=== PATIENT | male | born 1985 | race Caucasian/White ===

== ENCOUNTER 2021-07-01 15:32 | Emergency (ER) | payer SELFPAY ==
--- NOTE | 2021-07-01 16:23 | EDM.PDOCBH ---
ED HPI GENERAL MEDICAL PROBLEM - General Chief Complaint: Drug or Alcohol Abuse Stated Complaint: EVAL Time Seen by Provider: 07/01/21 16:18 Source of Information: Reports: Patient, RN Notes Reviewed History Limitations: Reports: No Limitations - History of Present Illness INITIAL COMMENTS - FREE TEXT/NARRATIVE: 35-year-old gentleman presents emergency department today for medical screening, he is using methamphetamine and would like to go to detox, he was sent here per request of social worker delinquency prevention for medical evaluation and then hopefully with clearance he will be able to go to detox today. He has no complaints he last used methamphetamine this morning - Related Data Allergies Allergy/AdvReac Type Severity Reaction Status Date / Time naproxen AdvReac Stomach Verified 07/01/21 16:04 Ache Home Meds: Home Meds ARIPiprazole [Abilify] 10 mg PO DAILY 07/01/21 [History] hydrOXYzine HCL [hydrOXYzine] 25 mg PO TID 07/01/21 [History] lisinopriL [Lisinopril] 10 mg PO DAILY 07/01/21 [History] Past Medical History Cardiovascular History: Reports: Hypertension Musculoskeletal History: Reports: Fracture Neurological History: Reports: Other (See Below) Other Neuro History: TBI x2 Psychiatric History: Reports: Addiction, Anxiety, PTSD, Suicide Attempt, Other (See Below) Other Psychiatric History: night terrors. - Past Surgical History Musculoskeletal Surgical History: Reports: Other (See Below) Other Musculoskeletal Surgeries/Procedures:: bilateral foot surger, right hand fx fixed x3. Social & Family History - Tobacco Use Tobacco Use Status *Q: Light Tobacco User Years of Tobacco use: 20 Packs/Tins Daily: 0.2 - Caffeine Use Caffeine Use: Reports: Coffee, Energy Drinks, Soda, Tea - Recreational Drug Use Recreational Drug Use: Yes Recreational Drug Type: Reports: Marijuana/Hashish, Methamphetamine, Other (see below) Other Recreational Drug Type: delta 8 Recreational Drug Use Frequency: Daily ED ROS GENERAL - Review of Systems Review Of Systems: See Below Constitutional: Reports: No Symptoms HEENT: Reports: No Symptoms Respiratory: Reports: No Symptoms Cardiovascular: Reports: No Symptoms GI/Abdominal: Reports: No Symptoms Neurological: Reports: No Symptoms Psychiatric: Reports: No Symptoms ED EXAM, BEHAVIORAL HEALTH - Physical Exam Exam: See Below Exam Limited By: No Limitations General Appearance: Alert, WD/WN, No Apparent Distress Respiratory/Chest: No Respiratory Distress, Lungs Clear, Normal Breath Sounds, No Accessory Muscle Use, Chest Non-Tender Cardiovascular: Regular Rate, Rhythm, No Murmur GI/Abdominal: Soft, Non-Tender COURSE, BEHAVIORAL HEALTH COMP - Course Vital Signs: Last Vital Signs Temp 98.2 F 07/01/21 16:03 Pulse 112 H 07/01/21 16:03 Resp 16 07/01/21 16:03 BP 166/107 H 07/01/21 16:03 Pulse Ox 94 L 07/01/21 16:03 Orders, Labs, Meds: Laboratory Tests 07/01/21 07/01/21 07/01/21 Range/Units 16:30 16:30 16:32 WBC 10.6 (4.5-11.0) K/uL RBC 5.42 (4.30-5.90) M/uL Hgb 15.7 H (12.0-15.0) g/dL Hct 46.1 (40.0-54.0) % MCV 85 (80-98) fL MCH 29 (27-31) pg MCHC 34 (32-36) % Plt Count 426 H (150-400) K/uL Neut % (Auto) 62.1 (36-66) % Lymph % (Auto) 28.5 (24-44) % [place] % (Auto) 8.5 H (2-6) % Eos % (Auto) 0.5 L (2-4) % Baso % (Auto) 0.4 (0-1) % Sodium (140-148) mmol/L Potassium (3.6-5.2) mmol/L Chloride (100-108) mmol/L Carbon Dioxide (21-32) mmol/L Anion Gap (5.0-14.0) mmol/L BUN (7-18) mg/dL Creatinine (0.8-1.3) mg/dL Est Cr Clr Drug Dosing mL/min Estimated GFR (MDRD) (>60) Glucose (74-106) mg/dL Calcium (8.5-10.1) mg/dL Total Bilirubin (0.2-1.0) mg/dL AST (15-37) U/L ALT (12-78) U/L Alkaline Phosphatase (46-116) U/L Total Protein (6.4-8.2) g/dL Albumin (3.4-5.0) g/dL Globulin (2.3-3.5) g/dL Albumin/Globulin Ratio (1.2-2.2) Urine Opiates Screen Negative (NEGATIVE) Ur Oxycodone Screen Negative (NEGATIVE) Urine Methadone Screen Negative (NEGATIVE) Ur Propoxyphene Screen Negative (NEGATIVE) Ur Barbiturates Screen Negative (NEGATIVE) Ur Tricyclics Screen Negative (NEGATIVE) Ur Phencyclidine Scrn Negative (NEGATIVE) Ur Amphetamine Screen Presumptive positive H (NEGATIVE) U Methamphetamines Scrn Presumptive positive H (NEGATIVE) Urine MDMA Screen Negative (NEGATIVE) U Benzodiazepines Scrn Negative (NEGATIVE) U Cocaine Metab Screen Negative (NEGATIVE) U Marijuana (THC) Screen Presumptive positive H (NEGATIVE) SARS CoV-2 RNA Rapid LAURI Negative 07/01/21 Range/Units 16:32 WBC (4.5-11.0) K/uL RBC (4.30-5.90) M/uL Hgb (12.0-15.0) g/dL Hct (40.0-54.0) % MCV (80-98) fL MCH (27-31) pg MCHC (32-36) % Plt Count (150-400) K/uL Neut % (Auto) (36-66) % Lymph % (Auto) (24-44) % [place] % (Auto) (2-6) % Eos % (Auto) (2-4) % Baso % (Auto) (0-1) % Sodium 138 L (140-148) mmol/L Potassium 3.7 (3.6-5.2) mmol/L Chloride 99 L (100-108) mmol/L Carbon Dioxide 28 (21-32) mmol/L Anion Gap 14.7 H (5.0-14.0) mmol/L BUN 13 (7-18) mg/dL Creatinine 0.9 (0.8-1.3) mg/dL Est Cr Clr Drug Dosing 124.54 mL/min Estimated GFR (MDRD) > 60 (>60) Glucose 104 (74-106) mg/dL Calcium 9.4 (8.5-10.1) mg/dL Total Bilirubin 1.1 H (0.2-1.0) mg/dL AST 15 (15-37) U/L ALT 38 (12-78) U/L Alkaline Phosphatase 79 (46-116) U/L Total Protein 7.3 (6.4-8.2) g/dL Albumin 4.2 (3.4-5.0) g/dL Globulin 3.1 (2.3-3.5) g/dL Albumin/Globulin Ratio 1.4 (1.2-2.2) Urine Opiates Screen (NEGATIVE) Ur Oxycodone Screen (NEGATIVE) Urine Methadone Screen (NEGATIVE) Ur Propoxyphene Screen (NEGATIVE) Ur Barbiturates Screen (NEGATIVE) Ur Tricyclics Screen (NEGATIVE) Ur Phencyclidine Scrn (NEGATIVE) Ur Amphetamine Screen (NEGATIVE) U Methamphetamines Scrn (NEGATIVE) Urine MDMA Screen (NEGATIVE) U Benzodiazepines Scrn (NEGATIVE) U Cocaine Metab Screen (NEGATIVE) U Marijuana (THC) Screen (NEGATIVE) SARS CoV-2 RNA Rapid LAURI Departure - Departure Time of Disposition: 17:23 Disposition: DC/Tfer to Inpt Rehab Fac 62 Condition: Fair Clinical Impression: Evaluation by medical service required, Methamphetamine abuse - Discharge Information Instructions: Methamphetamines Use Disorder Referrals: PCP,None [Primary Care Provider] - Forms: ED Department Discharge Additional Instructions: Please report to [facility] for further treatment and evaluation. Sepsis Event Note (ED) - Evaluation Sepsis Screening Result: No Definite Risk - Focused Exam Vital Signs: Vital Signs Temp Pulse Resp BP Pulse Ox 07/01/21 16:03 98.2 F 112 H 16 166/107 H 94 L 07/01/21 15:53 98.2 F 112 H 16 166/107 H 94 L - Assessment/Plan Plan: Assessment Acuity = acute Site and laterality = methamphetamine abuse and dependence Etiology = methamphetamine Manifestations = none Location of injury = Home Lab values = CBC CMP unremarkable urinalysis positive for methamphetamine and cannabis Covid is negative Plan He is of average risk for medical evaluation for detoxification treatment he will be transferred to [facility] This note was dictated using [employer] voice recognition software please call with any questions on syntax or grammar.
== END 2021-07-01 20:20 ==
LOC: JP.ED 15:32
DX: F15.10 Other stimulant abuse, uncomplicated (principal); I10 Essential (primary) hypertension; Z88.5 Allergy status to narcotic agent; Z79.899 Other long term (current) drug therapy; Z72.0 Tobacco use; Z20.822 Contact with and (suspected) exposure to COVID-19
CPT/HCPCS: 36415; 80053; 80305-QW; 80307; 85025; 99283; U0002